=== PATIENT | male | born 1995 | race Caucasian/White ===

== ENCOUNTER 2019-01-06 10:17 | Emergency (ER) | payer OTHER ==
[~2019-01-06] VITALS: Ht 172.7 cm; Wt 80.0 kg
[~2019-01-06 10:17] MED LIST: RISP2 PO; RISP4 PO
[2019-01-06] MEDS ORDERED: INHALER IH (11:15)
[2019-01-06 12:47] LABS: BASOPHILS % (AUTO) 0.8 % (0.0-2.0); EOSINOPHILS % (AUTO) 0.2 % (1.0-6.0); HEMATOCRIT 50.8 % (41-53); HEMOGLOBIN 17.3 g/dL (13.5-17.5); LYMPHOCYTES # (AUTO) 1.6 K/uL (1.0-4.8); LYMPHOCYTES % (AUTO) 20.4 % (22.0-44.0); MEAN CORPUSCULAR VOLUME 88 fL (80-100); MONOCYTES # (AUTO) 0.6 K/uL (0.1-1.0); MONOCYTES % (AUTO) 8.2 % (2.0-9.0); NEUTROPHILS # (AUTO) 5.4 K/uL (1.8-7.7); NEUTROPHILS % (AUTO) 70.4 % (40.0-70.0); PLATELET COUNT (AUTO) 228 K/uL (150-450); RED BLOOD CELL COUNT(AUTO) 5.75 MIL/uL (4.50-5.90); RED CELL DISTRIBUTION WIDTH 13.3 % (11.5-14.5)
[2019-01-06 13:16] VITALS: BP 121/73
[2019-01-06 13:36] LABS: ANION GAP 9 mmol/L (8-16); CALCIUM, TOTAL 9.2 mg/dL (8.8-10.5); CARBON DIOXIDE 26 mmol/L (22-29); CHLORIDE 104 mmol/L (98-107); CREATININE 0.85 mg/dL (0.60-1.30); GLOMERULAR FILTR. RATE CALC > 60 mL/min (>60); GLUCOSE,RANDOM 95 mg/dL (70-110); POTASSIUM 4.1 mmol/L (3.5-5.1); SODIUM SERUM 139 mmol/L (136-145); UREA NITROGEN, BLOOD 6 mg/dL (7-18)
[2019-01-06 13:40] LABS: ALANINE AMINOTRANSFERASE 40 U/L (12-78); ALBUMIN 3.7 g/dL (3.4-5.0); ALKALINE PHOSPHATASE 108 U/L (46-116); ASPARTATE AMINOTRANSFERASE 26 U/L (15-37); BILIRUBIN,TOTAL 0.6 mg/dL (0.1-1.0); TOTAL PROTEIN, SERUM 7.3 g/dL (6.4-8.2)
[2019-01-06] MEDS ORDERED: ALBU8.5H8 IH (13:57)
[2019-01-06] MEDS ORDERED: RisperiDONE 1 MG TABLET PO ONE (14:00)
== END 2019-01-06 15:34 | disposition home or self-care (01) ==
LOC: EMS 10:18
DX: F20.0 Paranoid schizophrenia (principal); J45.909 Unspecified asthma, uncomplicated; F31.9 Bipolar disorder, unspecified; F17.210 Nicotine dependence, cigarettes, uncomplicated; F19.90 Other psychoactive substance use, unspecified, uncomplicated
CPT/HCPCS: 36415; 80053; 85025; 99285; 99406; G0480

== ENCOUNTER 2022-06-02 14:21 | Inpatient (IN) | payer MEDICAID, OTHER ==
[~2022-06-02] VITALS: Ht 154.4 cm; Wt 106.6 kg
[~2022-06-02 14:21] MED LIST changes: +ALBU8.5H8 IH; -RISP2 PO; +RISP2TAB45 PO; -RISP4 PO; +RISP4TAB73 PO
[2022-06-02 14:57] LABS: BASOPHILS % (AUTO) 0.5 % (0.0-2.0); EOSINOPHILS % (AUTO) 0.4 % (1.0-6.0); HEMATOCRIT 47.4 % (41-53); HEMOGLOBIN 16.1 g/dL (13.5-17.5); LYMPHOCYTES # (AUTO) 2.1 K/uL (1.0-4.8); LYMPHOCYTES % (AUTO) 18.2 % (22.0-44.0); MEAN CORPUSCULAR VOLUME 85 fL (80-100); MONOCYTES # (AUTO) 0.8 K/uL (0.1-1.0); MONOCYTES % (AUTO) 6.9 % (2.0-9.0); NEUTROPHILS # (AUTO) 8.7 K/uL (1.8-7.7); PLATELET COUNT (AUTO) 260 K/uL (150-450); RED BLOOD CELL COUNT(AUTO) 5.55 MIL/uL (4.50-5.90)
[2022-06-02 15:10] LABS: ANION GAP 9 mmol/L (8-16); CALCIUM, TOTAL 9.8 mg/dL (8.8-10.5); CARBON DIOXIDE 26 mmol/L (22-29); CHLORIDE 102 mmol/L (98-107); GLUCOSE,RANDOM 112 mg/dL (70-110); POTASSIUM 4.1 mmol/L (3.5-5.1); SODIUM SERUM 137 mmol/L (136-145); UREA NITROGEN, BLOOD 8 mg/dL (7-18)
[2022-06-02 15:12] LABS: GLOMERULAR FILTR. RATE CALC > 60 mL/min (>60)
[2022-06-02 15:16] LABS: ALANINE AMINOTRANSFERASE 36 U/L (12-78); ALBUMIN 3.9 g/dL (3.4-5.0); ALKALINE PHOSPHATASE 140 U/L (46-116); ASPARTATE AMINOTRANSFERASE 16 U/L (15-37); BILIRUBIN,TOTAL 0.5 mg/dL (0.1-1.0); TOTAL PROTEIN, SERUM 8.4 g/dL (6.4-8.2)
[2022-06-02 15:20] LABS: COVID AG,FIA SOURCE NASOPHARYNGEAL
[2022-06-02] MEDS ORDERED: RisperiDONE 1 MG TABLET PO ONE (16:00)
[2022-06-02] MEDS ORDERED: HALOPERIDOL 5 MG TABLET PO PRN (17:00)
[2022-06-02] MEDS ORDERED: LORazepam 2 MG TABLET PO PRN (17:00)
[2022-06-02] MEDS ORDERED: ZOLPIDEM TARTRATE 10 MG TABLET PO PRN (17:00)
[2022-06-02 17:33] LABS: AMPHET/METH SCREEN,URINE NEGATIVE (NEGATIVE); BARBITURATE SCREEN, URINE NEGATIVE (NEGATIVE); BENZODIAZEPINES SCREEN,URINE NEGATIVE (NEGATIVE); CANNABINOID SCREEN,URINE NEGATIVE (NEGATIVE); COCAINE SCREEN,URINE NEGATIVE (NEGATIVE); METHADONE SCREEN, URINE NEGATIVE (NEGATIVE); OPIATE SCREEN,URINE NEGATIVE (NEGATIVE)
[2022-06-02 17:35] LABS: PHENCYCLIDINE SCREEN,URINE NEGATIVE (NEGATIVE)
[2022-06-02 22:44] VITALS: BP 140/80
[2022-06-03] MEDS ORDERED: MAGNESIUM HYDROXIDE SUSPENSION 30 ML UDCUP PO PRN (06:15)
[2022-06-03] MEDS ORDERED: ONDANSETRON HCL 4 MG TABLET PO PRN (06:15)
[2022-06-03] MEDS ORDERED: ALBUTEROL SULFATE HFA 90 MCG/PUFF 8 GM INHALER IH PRN (06:15)
[2022-06-03] MEDS ORDERED: CloNIDine HCL 0.1 MG TABLET PO PRN (06:15)
[2022-06-03] MEDS ORDERED: LOPERAMIDE HCL 2 MG CAPSULE PO PRN (06:15)
[2022-06-03] MEDS ORDERED: IBUPROFEN 400 MG TABLET PO PRN (06:15)
[2022-06-03] MEDS ORDERED: DOCUSATE SODIUM 100 MG CAPSULE PO PRN (06:15)
[2022-06-03] MEDS ORDERED: MAG HYDROX/AL HYDROX/SIMETH ES 30 ML SUSPENSION UDCUP PO PRN (06:15)
[2022-06-03] MEDS ORDERED: GuaiFENesin/D-METHORPHAN [SUGAR-FREE] 200-20MG/10 ML SYRUP UDCUP PO PRN (06:15)
[2022-06-03] MEDS ORDERED: NICOTINE 14 MG/24 HOUR PATCH TD PRN (06:15)
[2022-06-03] MEDS ORDERED: PETROLATUM,WHITE 28 GM JELLY TP PRN (06:15)
[2022-06-03] MEDS ORDERED: ACETAMINOPHEN 325 MG TABLET PO PRN (06:15)
[2022-06-03 08:00] VITALS: BP 108/67
[2022-06-03] MEDS: RisperiDONE 2 MG TABLET PO SCH ×2 (13:40→21:42)
[2022-06-03 16:14] VITALS: BP 154/99
[2022-06-03 17:43] VITALS: BP 149/90
[2022-06-03] MEDS: IBUPROFEN 400 MG TABLET PO PRN (19:24)
[2022-06-04] MEDS: RisperiDONE 2 MG TABLET PO SCH ×2 (08:35→20:15)
[2022-06-04 09:30] VITALS: BP 143/75
[2022-06-04 11:36] VITALS: BP 138/76
[2022-06-04] MEDS: IBUPROFEN 400 MG TABLET PO PRN ×2 (11:36→18:51)
[2022-06-04] MEDS ORDERED: BENZOCAINE 10% 7 GM GEL TP PRN (11:45)
[2022-06-04 12:36] VITALS: BP 134/78
[2022-06-05 08:00] VITALS: BP 125/75
[2022-06-05] MEDS: RisperiDONE 2 MG TABLET PO SCH ×2 (09:02→20:26)
[2022-06-05 16:14] VITALS: BP 140/80
[2022-06-06] MEDS: RisperiDONE 2 MG TABLET PO SCH ×2 (08:52→21:09)
[2022-06-06 09:28] VITALS: BP 141/86
[2022-06-06 17:00] VITALS: BP 109/69
[2022-06-07] MEDS: RisperiDONE 2 MG TABLET PO SCH ×2 (08:34→21:00)
[2022-06-07 08:49] VITALS: BP 120/79
[2022-06-07 16:25] VITALS: BP 108/68
[2022-06-08 06:42] LABS: COVID AG,FIA SOURCE NASAL SWAB
[2022-06-08 08:00] VITALS: BP 127/79
[2022-06-08] MEDS: RisperiDONE 2 MG TABLET PO SCH (08:19)
[2022-06-08 17:09] VITALS: BP 140/85
[2022-06-08] MEDS: RisperiDONE 4 MG TABLET PO SCH ×2 (20:42→21:17)
[2022-06-09] MEDS: RisperiDONE 4 MG TABLET PO SCH (08:57)
[2022-06-09] MEDS ORDERED: RisperiDONE 4 MG TABLET PO SCH (09:00)
[2022-06-09] MEDS ORDERED: RISP4TAB73 PO (12:59)
== END 2022-06-09 14:35 | disposition home or self-care (01) | DRG 750 ==
LOC: EMS 14:21 → 3EI 20:02 → UNDOADMIN 20:02
PROVIDERS: ADMIT Psychiatry & Neurology Child & Adolescent Psychiatry; ATTEND Psychiatry & Neurology Child & Adolescent Psychiatry
DX: F25.0 Schizoaffective disorder, bipolar type (principal); R45.851 Suicidal ideations; Z91.14 Patient's other noncompliance with medication regimen; D72.829 Elevated white blood cell count, unspecified; J45.909 Unspecified asthma, uncomplicated; F41.9 Anxiety disorder, unspecified; F32.A Depression, unspecified; Z20.822 Contact with and (suspected) exposure to COVID-19; Z79.899 Other long term (current) drug therapy; Z87.891 Personal history of nicotine dependence
CPT/HCPCS: 80053; 85025; 99285; G0480